=== PATIENT | male | born 1945 | race Caucasian/White ===

== ENCOUNTER 2017-05-13 05:47 | Inpatient (IN) | payer BC, OTHER ==
[2017-05-13] MEDS ORDERED: ceFAZolin 2 GM/SWFI 2 GM/20 ML SYR IVP ONE (06:07)
[2017-05-13] MEDS ORDERED: ACETAMINOPHEN 500 MG TAB PO ONE (06:07)
[2017-05-13] MEDS ORDERED: GABAPENTIN 300 MG CAP PO ONE (06:07)
[2017-05-13] MEDS ORDERED: LR 1,000 ML IV ONE (06:19)
[2017-05-13] MEDS ORDERED: LIDOCAINE 1% 2 ML INJ ID PRN (06:19)
--- NOTE | 2017-05-13 06:48 | PDHPUP ---
History & Physical Update H&P update statement: This history and physical update is based on an assessment of the patient which was completed after admission or registration (within 24 hours), but prior to the surgery/procedure. H&P update: H&P reviewed & patient examined, no change in patient's condition since H&P completed
[2017-05-13] MEDS ORDERED: MIDAZOLAM 2 MG/2 ML VIAL ONE ×3 (06:50→11:12)
[2017-05-13] MEDS ORDERED: KETAMINE 200 MG/20 ML VIAL ONE (06:51)
[2017-05-13] MEDS ORDERED: fentaNYL 250 MCG/5 ML INJ ONE ×3 (06:51→08:35)
[2017-05-13] MEDS ORDERED: PROPOFOL/EMULSION 500 MG/50 ML BOTTLE IV ONE ×2 (06:51)
[2017-05-13] MEDS ORDERED: BUPIVACAINE 0.25% 30 ML SDV ONE ×2 (07:00→14:30)
[2017-05-13] MEDS ORDERED: THROMBIN (BOVINE) 5,000 UNIT VIAL TP ONE ×3 (07:00→11:20)
[2017-05-13] MEDS ORDERED: DEXMEDETOMIDINE HCL 400 MCG in NS 100 ML IV SCH ×2 (07:00→11:00)
[2017-05-13] MEDS ORDERED: BACITRACIN 50,000 UNITS/10 ML SYR IRR ONE ×3 (07:00→14:30)
--- NOTE | 2017-05-13 07:03 | PDANEPAE ---
ANE History of Present Illness 72 year old male with PMH significant for bilateral upper extremity radiuclar numbness to hands from Cervical Disc disease, rate controlled atrial fibrillation, gout, and hypersensitive interstitial lung disease for which is in a research protocol at [facility]. He uses CPAP every night and is not home oxygen dependent. He has good exercise tolerance. He has received several anesthetics without nausea, emesis, or other complications. ANE Past Medical History - Cardiovascular History Hx Hypertension: No Hx Arrhythmias: Yes Hx Chest Pain: No Hx Coronary Artery / Peripheral Vascular Disease: No Hx CHF / Valvular Disease: No Hx Palpitations: No Cardiovascular History Comment: CHRONIC A-FIB - Pulmonary History Hx COPD: No Hx Asthma/Reactive Airway Disease: No Hx Recent Upper Respiratory Infection: No Hx Oxygen in Use at Home: No Hx Sleep Apnea: Yes Sleep Apnea Screening Result - Last Documented: Positive Pulmonary History Comment: INTERSTITIAL LUNG DX. MONI USES C-PAP INSTRUCTED TO BRING DOS - Neurologic History Hx Cerebrovascular Accident: No Hx Seizures: No Hx Dementia: No - Endocrine History Hx Diabetes: No - Renal History Hx Renal Disorders: No - Liver History Hx Hepatic Disorders: No - Neurological & Psychiatric Hx Hx Neurological and Psychiatric Disorders: No - Cancer History Hx Cancer: Yes Cancer History Comment: SKIN - Congenital Disorder History Hx Congenital Disorders: No - GI History Hx Gastrointestinal Disorders: Yes Gastrointestinal History Comment: REMVL COLON POLYPS. PREV ESOPHAGEAL DILATIONS X2. RESIDUAL ISSUES WITH SWALLOWING - Other Health History Other Health History: GILBERTS SYNDROME. GOUT. PERIPHERAL NEUROPATHY VS PARESTHESIA. INTERMITTENT TINNITUS/VERTIGO. ECZEMA. VITAMIN D DEFICIENCY - Chronic Pain History Chronic Pain: Yes (NT FINGERS) - Surgical History Prior Surgeries: EGD,ESOPHAGEAL DILATION X2 MOST RECENT 2013. LOLITA HIP RESURFACING LAST 2002. BRONCH. REMVL NASAL POLYPS. TONSILLECTOMY. APPY. MOH 'S RT JAINISM. RT FIBULA ORIF TIBIA WITH POST HARDWARE REMVL ANE Review of Systems Review of Systems: - Exercise capacity METS (RN): 5 METS ANE Patient History - Allergies Allergies/Adverse Reactions: amoxicillin Allergy (Verified 04/14/17 13:15) "flu like symptoms" Penicillins Allergy (Verified 17 13:15) "joint swelling" tree nut [Nuts] Allergy (Verified 17 13:15) - Home Medications Home Medications: Albuterol [Proventil Inhaler HFA (*)] 1 - 2 puffs IH DAILY PRN 12/12/17 [Last Taken 02/01/17] Allopurinol [Allopurinol 300 MG (RX)] 300 mg PO DAILY 04/14/17 [Last Taken 05/13 04:45] Aspirin [Aspirin 81mg (*)] 81 mg PO DAILY 04/14/17 [Last Taken 05/06/17] Azelastine HCl 2 mcg NS DAILY PRN 04/14/17 [Last Taken 05/12/17] Cholecalciferol Vit D3 [Vitamin D3 2000 units tab (OTC)] 4,000 units PO DAILY [Last Taken 05/06/17] Clindamycin 600 mg PO AD PRN 04/14/17 [Last Taken 03/04/17] Colchicine [Colchicine (*)] 0.6 mg PO DAILY PRN 04/14/17 [Last Taken 03/04/17] - NPO status NPO Since - Liquids (Date): 05/13/17 NPO Since - Liquids (Time): 04:45 NPO Since - Solids (Date): 05/12/17 NPO Since - Solids (Time): 19:30 - Smoking Hx Smoking Status: Former smoker - Family Anes Hx Family Hx Anesthesia Complications: NEG ANE Labs/Vital Signs - Vital Signs Blood Pressure: 129/90 Heart Rate: 91 Respiratory Rate: 20 O2 Sat (%): 91 Height: 179.07 cm Weight: 97.522 kg ANE Physical Exam - Airway Neck exam: FROM Mallampati Score: Class 1 Mouth exam: normal dental/mouth exam, poor dentition - Pulmonary Pulmonary: no respiratory distress - Cardiovascular Cardiovascular: irregularly irregular - ASA Status ASA Status: III ANE Anesthesia Plan Anesthesia Plan: general endotracheal anesthesia Lines/Monitors: additional IV
[2017-05-13] MEDS ORDERED: ALBUTEROL 60 PUFFS/8 GM MDI IH PRN (07:31)
[2017-05-13] MEDS ORDERED: AZELASTINE NASAL MDI NS PRN (07:31)
[2017-05-13] MEDS ORDERED: COLCHICINE 0.6 MG CAP/TAB PO PRN (07:31)
[2017-05-13] MEDS ORDERED: MAGNESIUM HYDROXIDE 30 ML UDCUP PO PRN (07:32)
[2017-05-13] MEDS ORDERED: HYDROCODONE/APAP 5/325 TAB PO PRN (07:32)
[2017-05-13] MEDS ORDERED: oxyCODONE IR 5 MG TAB PO PRN (07:32)
[2017-05-13] MEDS ORDERED: BISACODYL 10 MG SUPP PR PRN (07:32)
[2017-05-13] MEDS ORDERED: HYDROmorphONE/DILAUDID 1 MG/ML INJ IVP PRN (07:32)
[2017-05-13] MEDS ORDERED: NALOXONE HCL 0.4 MG/ML INJ IVP PRN ×2 (07:32→09:09)
[2017-05-13] MEDS ORDERED: diphenhydrAMINE 25 MG CAP PO PRN (07:32)
[2017-05-13] MEDS ORDERED: ONDANSETRON 4 MG/2 ML VIAL IVP PRN (07:32)
[2017-05-13] MEDS ORDERED: METHOCARBAMOL 750 MG TAB PO PRN (07:32)
[2017-05-13] MEDS ORDERED: HYDROmorphONE/DILAUDID 6 MG/30 ML PCA IV PRN (07:32)
[2017-05-13] MEDS ORDERED: ONDANSETRON DISINTEGRATING 4 MG TAB PO PRN (07:32)
[2017-05-13] MEDS ORDERED: LACTULOSE 20 GM/30 ML UDCUP PO PRN (07:32)
[2017-05-13] MEDS ORDERED: POLYETHYLENE GLYCOL 3350 17 GM PKT PO PRN (07:32)
[2017-05-13] MEDS ORDERED: ALBUTEROL 200 PUFFS/18 GM MDI IH PRN (07:41)
[2017-05-13] MEDS ORDERED: NS W/ 20 KCl/L 1,000 ML IV SCH (07:45)
[2017-05-13] MEDS ORDERED: ceFAZolin 1 GM VIAL ONE (08:40)
[2017-05-13] MEDS ORDERED: ONDANSETRON 4 MG/2 ML VIAL ONE (08:56)
[2017-05-13] MEDS ORDERED: DEXAMETHASONE 4 MG/ML VIAL ONE (08:56)
[2017-05-13] MEDS ORDERED: ROCURONIUM 100 MG/10 ML VIAL ONE (08:56)
[2017-05-13] MEDS ORDERED: FAMOTIDINE 20 MG TAB PO SCH (09:00)
[2017-05-13] MEDS ORDERED: LR 500 ML IV PRN (09:09)
[2017-05-13] MEDS ORDERED: MEPERIDINE 25 MG/ML SYR IVP PRN (09:09)
[2017-05-13] MEDS ORDERED: fentaNYL 100 MCG/2 ML INJ IVP PRN (09:09)
[2017-05-13] MEDS ORDERED: PROPOFOL 200 MG/20 ML VIAL ONE (11:12)
[2017-05-13] MEDS ORDERED: PHENYLEPHRINE HCL 100 MCG/ML SYR ONE (12:55)
[2017-05-13] MEDS: ALLOPURINOL 300 MG TAB PO SCH (13:26)
[2017-05-13] MEDS: SENNOSIDES/DOCUSATE SODIUM TAB PO SCH ×2 (13:27→20:05)
[2017-05-13 13:35] LABS: PLATELET COUNT 160 10^3/uL (150-400)
[2017-05-13] MEDS ORDERED: methylPREDNISolone SOD SUCC 125 MG/2 ML VIAL IVP ONE (13:45)
--- NOTE | 2017-05-13 13:47 | SOAPPROG ---
SOAP Progress Note Assessment/Plan: Post Op Visit S: pt had post op brief episode of hypoxia and required re-intubation. Anesthesia with pt O: intubated and sedated/paralyzed neck is soft and supple-no induration dressing clean and dry A/P: 72 yo male that is s/p C5 corpectomy with ACDF C4-C7 -orders in place -pt with post op/post extubation hypoxic episode that was brief and required reintubation -Anesthesia with pt -RT with pt -Dr Buster Quiñones with pt -admit to ICU -call with any questions or concern -pt seen with Dr Cristina 05/13/17 13:42 Objective: Vital Signs Temp Pulse Resp BP Pulse Ox 36.6 C 91 20 129/90 H 91 L 05/13/17 06:46 05/13/17 07:03 05/13/17 07:03 05/13/17 07:03 05/13/17 07:03 Laboratory Results 05/13/17 13:08 ICD10 Worksheet Patient Problems: Problems Problem Status Onset Arthrodesis status Acute Cervical radicular pain Acute Cervical stenosis of spinal canal Acute Postoperative hypoxia Acute - ICD10 Problem Qualifiers (1) Cervical stenosis of spinal canal (2) Cervical radicular pain (3) Arthrodesis status (4) Postoperative hypoxia
[2017-05-13] MEDS: GABAPENTIN 300 MG CAP PO SCH ×2 (13:50→20:06)
[2017-05-13] MEDS: ACETAMINOPHEN 500 MG TAB PO SCH ×2 (13:50→20:05)
[2017-05-13] MEDS ORDERED: ceFAZolin 2 GM/DEXTROSE 100 ML IV SCH (14:00)
[2017-05-13] MEDS ORDERED: ALBUMIN 5% 500 ML BOTTLE IV ONE (14:28)
[2017-05-13] MEDS ORDERED: THROMBIN (BOVINE) 20,000 UNIT VIAL TP ONE (14:29)
[2017-05-13] MEDS ORDERED: SURGIFLO MATRIX KIT WITH THROMBIN 8ml TP ONE (14:29)
[2017-05-13] MEDS ORDERED: ALTEPLASE 2 MG VIAL IVP PRN (14:33)
--- NOTE | 2017-05-13 14:51 | GOP ---
[f rep st] OPERATIVE REPORT DATE OF OPERATION: 05/13/2017 SURGEON: Sherrie Cristina MD PROFESSOR OF FLORICULTURE: Dex Garland PA-C. PREOPERATIVE DIAGNOSIS: Severe cervical spinal stenosis with cord compression C4-5, C5-6, C6-7 with myelomalacia and bilateral upper extremity dysesthesias. POSTOPERATIVE DIAGNOSIS: Severe cervical spinal stenosis with cord compression C4-5, C5-6, C6-7 with myelomalacia and bilateral upper extremity dysesthesias. PROCEDURE PERFORMED: Complete C5 corpectomy with decompression spinal canal at C4-5, C5-6, with ante rior cervical arthrodesis C4-5, C5-6 (39693, [id number], [id number]), placement of biomechanical intervertebral device from C4 to C6 ([id number]), anterior cervical diskectomy and fusion with decompression and arthrod esis at C6-7 (46198), placement of biomechanical intervertebral device C6-7 (64946), anterior cervica l instrumentation, C4, C5, C6, C7 ([id number]), microscope, same incision bone graft harvest ([id number]). FINDINGS: ESTIMATED BLOOD LOSS: 450 cc. INDICATIONS: The patient is an elderly gentleman with a history of pulmonary disease and severe bila teral upper extremity numbness and tingling. His MRI of the cervical spine demonstrated severe cord compression at C4-5, C5-6. There was some bony retrolisthesis of C5 and there was also material behi nd the vertebral body of C5 causing spinal stenosis. I felt, however, that we could achieve decompre ssion with ACDF alone at C4-5, C5-6, C6-7, and we planned a three-level anterior cervical diskectomy and fusion at those levels with decompression. I explained to him the nature of the procedure includ ing the risk of pseudoarthrosis, adjacent segment disease, the need for future surgery. He knew ther e was risk of spinal cord injury with any surgery like this. He also knew there was a chance of wors ening his neurologic status as well as worsening his dysesthesias with this type of surgery. Without the surgery, however, he understood that he would almost certainly progress at some point to paraple alexey and given his severe cord compression, surgery was recommended. He knew there was risk of vascul ar injury, esophageal injury, carotid injury, recurrent laryngeal nerve injury, and dysphagia, and he did want to proceed. DESCRIPTION OF PROCEDURE: Patient was taken to the operating room, placed in supine position. Gener al anesthesia was begun. A midline shoulder roll was placed. We did baseline motor evoked and somat osensory-evoked potentials, and they were normal. His neck was sterilely prepped and draped in the u sual fashion. We planned a transverse incision on the right side of the neck. We infiltrated the shah bcutaneous tissue with 0.25% Marcaine with epinephrine. We made a transverse incision in the dominan t neck crease on the right-hand side. The subcutaneous tissue was dissected using Bovie cautery down through the platysma. We then used a combination of sharp and blunt dissection medial to the sterno cleidomastoid and lateral to the strap muscles down to the prevertebral space. There was no need for division of any significant vessels. The dissection was extremely straightforward. We inserted a l ocalizing needle at the C5-6 level and there were large ventral osteophytes present. We then took co nsiderable time dissecting off the longus colli muscles off the spine from C4 down to C7, placed self -retaining retractors. We then removed the large ventral osteophytes to allow our retractors to sit flush against the verteb ral body. We placed a single pin in the C4 vertebral body and a single pin in the C6 vertebral body and distracted between these and shot an x-ray. We confirmed our location. A microscope was introdu tino. Under the scope we removed the C5-6 and the C4-5 disk really simultaneously. We took both of t hem out. We then drilled and harvested a significant amount of subchondral bone from each location f or autologous grafting purposes. We then turned our attention to C5-6 level where we opened the posterior longitudinal ligament and de compressed the thecal sac. There was very severe stenosis and very significant compression of the th ecal sac at C5-6. We decompressed surrounding the disk space at C5-6, and in the neural foramen on e ach side. We were happy with the quality of our decompression. Motor and somatosensory-evoked poten tials had been monitored throughout the surgery and they were stable. We went up to the C4-5 level u nder the scope, where we completely removed the disk and drilled and harvested subchondral bone for a utologous grafting purposes. We then began to open the posterior longitudinal ligament initially on the left-hand side and then working our way to the right. There was a large bony osteophyte on the r ight-hand side and therefore we started on the left. We opened the posterior longitudinal ligament, start working our way to the right-hand side. The dura was very apparent and we were getting a great decompression, and it was at this point that we sought a significant decrease in the left lower extr emity motor-evoked potentials. The tech felt there could be a technical issue and she adjusted our w ires and repeated these and got the same result. We had a diminished left arm and left leg motor chery ked potential. We therefore immediately converted to a C5 corpectomy as there were large posterior o steophytes and disk material in the spinal canal behind the C5 vertebral body, which was retrolisthes ed into the canal. We took a Leksell, out of the C5 vertebral body very quickly, and then worked our way from the C5-6 level up to the C4-5 level, and the decompression was very straightforw angel. There was absolutely a huge piece of bone on the right side of the spinal canal from the midpor tion of the C5 vertebral body all the way up to the C4-5 disk space. As we removed this, we repeated our motor-evoked potentials and they returned to baseline. They remained at baseline throughout the remaining portion of the procedure. We then took considerable time decompressing from the C5 pedicle to the C5 pedicle on each side. We removed the C4-5 disk and decompressed the neural foramen bilaterally at C4-5. There was some epidur al bleeding on the right side of the spinal canal behind the C5 vertebral body and we removed some ad ditional bone to control this. There was a small artery. They were present. There was bleeding and this was easily controlled. There was some bleeding from the corpectomy side and most of the blood loss during the case was venous bone bleeding. It was very dark. We packed the corpectomy site with Gelfoam while we prepared our implant and we measured 3 separate times and chose a 25 mm construct w hich we then built on the back table using a stackable system from [employer]. It was packed with lar ge amounts of bone autograft and inserted under fluoroscopic guidance from C4 to C6. I was very happ y with the position of the device. We did this naturally after removing the Gelfoam that had been pl aced in the corpectomy site, and we had achieved a meticulous hemostasis there. An x-ray was taken. I was happy with the position of the device. We moved our distraction pin down to C7, distracted at C6-7, and then removed the C6-7 disk and drill ed and harvested subchondral bone for autologous grafting purposes. We opened the posterior longitud inal ligament and decompressed the thecal sac and the neural foramina bilaterally. Here we chose a 7 x 16 x 14 mm implant, packed it with bone autograft, and it was inserted at the C6-7 level. On the C6-7 level, the right foramen had been worse than the left and we decompressed both. We then chose a 61 mm Zevo plate. We bent the plate to increase the cervical lordosis and placed a single screw at C4 and a single screw at C7. An x-ray was taken. I was happy with the hardware. It was in very goo d position. I placed the remaining 4 total screws for a total number of 6 screws into the plate. We used 17 mm screws. We locked them according to company specification and shot a final x-ray. All t he hardware was in good position. None of it had to be repositioned. We then spent considerable mara e achieving meticulous hemostasis of the longus colli muscles. Final motor evoked potential was done and we were at baseline. We had taken care throughout the surgery to maintain his mean arterial pre ssure, and I was happy that all of our signals were at their normal baseline. We then assured meticu lous hemostasis of the prevertebral space, placed a little Marcaine with epinephrine into the incisio n, and then closed the wound in multiple layers using Vicryl sutures. Steri-Strips were applied to t he skin. The patient was reversed from anesthesia and then taken to recovery room. There were no in traoperative complications. COMPLICATIONS: None. INSTRUMENTATION USED: A [employer] Zevo 61 mm plate from C4 to C7 with a 25 mm C5 construct, an 8, 5, 12 mm construct at C5, and we used a 7 x 16 x 14 mm PEEK PTC implant at C6-7. We used 17 mm screws. /[id number]/MODL
[2017-05-13] MEDS ORDERED: SUGAMMADEX SODIUM 200 MG/2 ML VIAL IVP ONE ×2 (15:00→15:15)
[2017-05-13] MEDS ORDERED: NOREPINEPHRINE/NS 500 ML IV SCH (15:00)
[2017-05-13] MEDS ORDERED: DEXMEDETOMIDINE/NS 4MCG/ML 100 ML BTL IV ONE (15:14)
[2017-05-13] MEDS ORDERED: ALBUMIN 5% 500 ML IV ONE (15:15)
--- NOTE | 2017-05-13 16:00 | ASMTCASEMG ---
Living Arrangements What is your living Answers: With Spouse arrangement? Who do you live with? Type Of Residence What kind of residence do Answers: House you live in? Discharge Plan Comments Coordination Status Comments Notes: Patient is a 72yo male who was admitted for a complete C5 corpectomy with decompressionspinal canal at C4-5, C5-6. Patient had surgery today with no complications. PT/OT/SPL have been ordered. D/C needs TBD. CM will follow. Date Signed: 05/13/2017 03:59 PM Electronically Signed By:Kassandra Khan LCSW
[2017-05-13] MEDS ORDERED: DOPamine/DEXTROSE/250 ML BAG IV ONE (17:02)
[2017-05-13] MEDS ORDERED: EPINEPHrine 1 MG/10 ML SYR IVP ONE (17:02)
[2017-05-13 17:41] LABS: INR 1.1 (0.83-1.16); PROTIME(PATIENT) 14.4 SEC (12.0-15.0)
[2017-05-13] MEDS ORDERED: ALBUTEROL 60 PUFFS/8 GM MDI IH SCH (17:45)
[2017-05-13] MEDS ORDERED: ALBUMIN 5% 500 ML IV PRN (18:50)
[2017-05-13] MEDS ORDERED: PROTOCOL MAGNESIUM 1 DOSE IV PRN (19:30)
[2017-05-13] MEDS ORDERED: PROTOCOL CALCIUM 1 DOSE IV PRN (19:30)
[2017-05-13] MEDS ORDERED: PROTOCOL POTASSIUM 1 DOSE MISC PRN (19:30)
[2017-05-13] MEDS: INSULIN REGULAR HUMAN 100 UNIT in NS 100 ML IV SCH (19:50)
[2017-05-13] MEDS: POTASSIUM Cl (KCl) 10 MEQ in NS 50 ML IV SCH ×3 (21:11→23:29)
[2017-05-13] MEDS: ALBUTEROL 60 PUFFS/8 GM MDI IH SCH ×2 (21:23→23:53)
[2017-05-13] MEDS ORDERED: MAGNESIUM SULF 1 GM/DEXTROSE 100 ML IV ONE (21:40)
[2017-05-13] MEDS ORDERED: CALCIUM GLUCONATE 50 ML IV ONE (22:19)
[2017-05-14] MEDS ORDERED: ALBUMIN 5% 500 ML IV ONE ×2 (01:00→07:44)
[2017-05-14] MEDS: ACETAMINOPHEN 500 MG TAB PO SCH ×3 (01:47→21:08)
[2017-05-14] MEDS: GABAPENTIN 300 MG CAP PO SCH ×3 (01:47→21:08)
--- NOTE | 2017-05-14 02:11 | GPN ---
[f rep st] PROCEDURE NOTE DATE OF PROCEDURE: 05/13/2017 PROCEDURE: Central line placement. INDICATION: Venous access, CVP measurements in a patient with hypotension and respiratory failure fo llowing neck surgery. DESCRIPTION OF PROCEDURE: The procedure was performed in the intensive care unit. Appropriate time- out was performed. Informed consent was obtained from the patient's . Sterile techniques were u sed throughout. A triple-lumen catheter was placed in the left subclavian vein without problems usin g standard techniques. Local anesthesia was with approximately 6 cc of 1% lidocaine. The procedure was done without any complications. There was good blood flow from all 3 lumens. A chest x-ray is p ending at the time of this dictation. IMPRESSION: Successful left subclavian central line placement. Chest x-ray pending. /[id number]/MODL
--- NOTE | 2017-05-14 02:51 | GPROG ---
[f rep st] PROGRESS NOTE PROGRESS NOTE DATE OF SERVICE: 05/13/2017 I was called to the PACU by my PA to see the patient, who was hypoxic and having troubles with his ai ralph. Anesthesiologist was at the bedside. It was Dr. Ruth who did the case, and they were mask v entilating him and she felt that he had upper airway obstruction. She did not feel there was a probl em at the site of the surgery as she had noticed that his rather large tongue had actually fallen in the back of his throat and it was having trouble maintaining the airway. He was also hypotensive, an d felt that while he also had an airway issue, there could be a problem with his lungs as he has pre- existing lung disease. He was not conscious, but I was present at the bedside and asked for her to r eintubate the patient, which she agreed was the appropriate course of treatment. I had no reservatio n about this. The neck was soft and supple. There was no sign of a problem at the surgical site. Buster evans was reintubated without difficulty but was not moving air properly, and I believe she felt that he was in vasospasm. He was also hypotensive with systolic pressures in the 70s, and this promptly resp onded to some epinephrine. Critical Care Medicine was consulted. I remained at the bedside with Cri tical Care Medicine and the anesthesiologist for quite some period of time. A chest x-ray was taken. The ET tube was in the proper position. The patient had been re-paralyzed for the procedure, and i t was felt that we should transfer him to ICU. We did transfer him to ICU where he continued to stru ggle with repeated hypotension as the epinephrine wore off, and we had no good explanation for this. His pupils were pinpoint. He still had not woken from surgery, and I had never seen him move. Card iology was consulted. An echocardiogram was performed at the bedside, and there was no clear evidenc e of significant tricuspid regurgitation or cardiac abnormality. He was in atrial fibrillation. The re was no sign on his EKG of cardiac ischemia. We had no good explanation for his hypotension, and t he possibility of spinal cord injury and spinal shock was entertained, although this obviously is jaquan te rare after anterior cervical corpectomy. It was certainly a consideration. I readied the OR to t vanessa him back to emergently re-explore the neck. An MRI, in my view, would not be safe given the stru ggle that he had with hypotension, nor did I like the delay. As I felt that this could be due to spi nal shock, I was prepared to re-explore him. We had rallied a team. The OR was prepared for us to g o back, and at this point, it had been a little over an hour and 20 minutes since the episode began, and I suggested reversing his paralytic agent. As we reversed his paralytic agent, he moved all 4 ex tremities to command, and the hypotension also improved slightly. He continued to have bilateral pin point pupils, but he would follow commands, had excellent strength in his arms and legs, and therefor e the possibility of spinal shock was ruled out. He was asking for us to remove his ET tube, and thi s is a decision I would defer to Pulmonary/Critical Care Medicine. I was very encouraged that his ne urologic exam was affectively normal at this point, and he was requiring a small amount of epinephrin e to support his blood pressure. We tried Levophed and dopamine, and neither of these seemed to be s uccessful. I believe it was the opinion of the anesthesiologist that he likely had some measure of p ulmonary hypertension, and hence his response to epinephrine but not the other vasoactive agents. He was completely stable when I left the bedside and in the care of Critical Care Medicine. We had dis cussed extubating him tonight, but again this is a decision best made by the hay sorter. His was informed throughout this process of all of the developments, and she understood my concerns thro ughout all of this. We will continue to reassess him as time goes on and work towards extubation acc ording to Pulmonary's schedule. /[id number]/MODL
--- NOTE | 2017-05-14 03:55 | GCON ---
[f rep st] CONSULTATION PULMONARY CRITICAL CARE CONSULTATION DATE OF CONSULTATION: 05/13/2017 REASON FOR CONSULTATION: Hypotension and acute respiratory failure following cervical spine surgery. HISTORY: The patient is a 72-year-old, who was admitted to the intensive care unit. With respirator y failure and hypotension following cervical spine surgery. He had significant cervical disease and elective surgery was performed earlier today. He had surgery from C4-C7 with corpectomy and decompre ssion of the spinal canal at C4-5 and C5-6, and arthrodesis. Anterior cervical diskectomy and fusion were done at C6-7, followed by plating. Further details can be found in Dr. Cristina's note. [facility] ed blood loss was approximately 450 cc. The patient was returned to the PACU following surgery and e xtubated. Because of a history of sleep apnea, he was placed on BiPAP post extubation. The head of his bed was raised and it was noted that he was breathing poorly and was hypotensive. He was intubat ed in PACU without significant difficulty. No obstruction or obvious hematoma was seen compressing t he airway. He was found to be moving little air. Secondary to hypotension and bradycardia he was gi pelon epinephrine. Pulse and blood pressure came back, with pressures above 200/100 briefly; however, he would again lose his pressure and the rapid rate seen with the epinephrine would slow, and he woul d again be com hypotensive and bradycardic requiring more epinephrine. He did not respond to a dopam ine drip. An ART line was placed. More epinephrine was given on 2 occasions, in smaller doses, and he was emergently transferred to the intensive care unit. There he was placed on an epinephrine drip . Central line was placed with a CVP found to be 13. He was left on the ventilator. Chest x-ray sh ows underlying interstitial disease. He also has received significant fluids, approximately 5 L of c rystalloid and colloid. The last x-ray showed increased markings probably consistent with some fluid overload. He remains on epinephrine. He is also on low-dose propofol. He is awake and alert, foll owing commands. He is responsive and relatively comfortable. He moves all extremities and reports s ensation in all extremities. PAST MEDICAL HISTORY: Remarkable for interstitial lung disease. He is followed at [facility] or [facility]. He also has a component of asthma and is on ProAir. He was on steroids and other inhaled m edications in the past. This there is a history of sleep apnea. He uses BiPAP at night. He has a h istory of chronic atrial fibrillation, and has been seen at [facility]. He uses oxygen. HOME MEDICATIONS: Include allopurinol, aspirin, topical nasal preparations, ProAir, and Proctozone. DRUG ALLERGIES: Penicillins. SOCIAL HISTORY: The patient is . He is a supportive who is here with him. He apparentl y smoked cigarettes in the more distant past. Significant alcohol is negative. FAMILY HISTORY: Noncontributory. REVIEW OF SYSTEMS: Currently unobtainable. Per his , there is no history of coronary artery dis ease. He has been followed at [facility] [place] for many years for his interstitial lung disease. His believes this is associated with a hypersensitivity type process. There is no history of throm boembolic disease. PHYSICAL EXAMINATION: GENERAL: Reveals a gentleman who is intubated, on the ventilator. He is slig htly sedated but is easily aroused and spontaneously will communicate. He responds to questions and commands. He is not too uncomfortable with the endotracheal tube in place. VITAL SIGNS: Blood pres sure is currently 100/53 with a mean arterial pressure of 68. Heart rate is 90 with atrial fibrillat ion on the monitor. CVP is 11. FiO2 is at 40% with saturations of 99%. Respiratory rate is 16 set on the ventilator. He will trigger above this. He remains on an epinephrine drip. He is also on Pr ecedex. HEENT: Remarkable for an oral endotracheal tube in place. Pupils are equal, slightly small . NECK: His surgical incision over the anterior right neck is dressed. The neck is soft. There is no fullness, no ecchymoses. No drains are in place. CHEST: Clear anteriorly. Breath sounds are s omewhat coarse. There are few rales scattered more posteriorly. There is no pleural rub. There are no rhonchi. There are no obvious wheezes. HEART: Regular in rate and rhythm. There is a soft sys tolic murmur, no gallop. ABDOMEN: Soft and nontender. Bowel sounds are diminished. A Pappas cathet er is in place. He has good urine output. EXTREMITIES: Unremarkable for edema, cords, or tendernes s. He has a left subclavian triple-lumen catheter in place and an ART line in the right wrist. IMAGING: Radiologic studies are as noted above. Chest x-ray shows increased markings. Lines and tu bes are in good position. LABORATORY: White blood cell count 7800, hematocrit 44, platelets 160,000. Arterial blood gas showed a pH of 7.40, pCO2 of 35, and a PO2 of 368. Chemistries are pending at the time of this dictation. ASSESSMENT: 1. Acute respiratory failure. The patient had profound hypoventilation despite being tried on bilev el positive airway pressure in the immediate post operative/post extubation time period. He was intu bated electively without significant difficulty. There was no evidence of a cervical hematoma. Ther e is no evidence for aspiration. 2. Hypotension. The patient was severely hypotensive in the Postanesthesia Care Unit, requiring sma ll boluses of epinephrine in order to maintain his blood pressure and pulse. He currently he is on e pinephrine drip at relatively high doses still. This is despite adequate filling pressures. The shiela ology for his hypotension is somewhat unclear. He is responding nicely to epinephrine but did not re spond either to dopamine or to Levophed when they were tried earlier today. The etiology for his hyp otension may be related to an unusual reaction to the medications he received perioperatively? If so , hopefully as these wear off he will stabilize. There is no evidence of pericardial tamponade or my ocardial dysfunction, nothing to suggest pulmonary embolic disease etc. 3. Underlying interstitial lung disease. 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 I do not have his records from [facility] [place]; however, recently his l magalie problems have been quite stable. His disease is accompanied by a reversible process as well, and he is on albuterol on an as-needed basis. There was no evidence to definitely suggest acute severe bronchospasm in the Postanesthesia Care Unit, although he did appear to move air more efficiently fol lowing being dosed with epinephrine. 4. Cervical spine surgery. There were no complications intraoperatively. He did lose some blood bu t hematocrit postoperatively is 44. There is no evidence of a surgical hematoma. There is no eviden ce of cord compromise as he is moving everything, has good sensation. 5. History of other medical problems as noted above. PLAN AND RECOMMENDATIONS: Patient will be kept on the ventilator overnight, with sedation provided b y Precedex, as long as this does not affect blood pressure significantly. Epinephrine will be contin ued for now, and weaned as tolerated to keep mean arterial pressure approximately 65 or greater. CVP will be kept in the 10-12 range. Fluids will be used judiciously and decreased at this point, as hi s x-ray appears a little wet. Chest x-ray, laboratory and blood gas will be followed. Neuro checks will be maintained. This once he is hemodynamically stable. If his pulmonary status is also stable then CPAP weans and extubation will be considered. Albuterol will be given per ventilatory protocols . His usual oral medications will be held at this time. Appropriate pain control will be maintained with p.r.n. IV Dilaudid as needed. Steroids will not be repeated at this time. Pantoprazole will b e given for GI prophylaxis, SCDs for DVT prophylaxis. Pappas catheter will be left in for now. Further plans and recommendations will be made based on his progress over the next 12-24 hours. All of the above was discussed with Neurosurgery, Anesthesia, the patient's , respiratory therapy , nursing etc. Over 2 hours of critical care time was spent directly with the patient starting in th e PACU and continued in the intensive care unit. This did not include central line placement. /[id number]/MODL
[2017-05-14] MEDS: INSULIN REGULAR HUMAN 100 UNIT in NS 100 ML IV SCH (04:13)
[2017-05-14] MEDS: ALBUTEROL 60 PUFFS/8 GM MDI IH SCH ×3 (04:26→11:23)
[2017-05-14 04:36] LABS: PLATELET COUNT 152 10^3/uL (150-400)
[2017-05-14] MEDS ORDERED: D5W 1,000 ML IV SCH (05:29)
--- NOTE | 2017-05-14 07:36 | NEUSURGPN ---
Date of Surgery: 05/13/17 Post Op Day: 1 Assessment/Plan: Assessment: 72 yo male that is s/p C5 corpectomy with ACDF C4-C7 with post op episode of hypoxia POD #1 Plan: -post op hypotension/hypoxia: doing better now with better blood pressure, pt with continued need for epi drip but at slower rate -s/p ACDF: pt with minimal neck pain -pt gestures that he has no pain -PT/OT/ST ordered -collar as directed -post op xrays ordered -neck soft and supple -call with any questions -orders in place -RT working with pt -critical care on board -call with any questions or concern -pt seen with Dr Cristina 05/13/17 13:42 Subjective: Awake and alert. NAD. Pt with minimal neck pain. Collar in place. Objective: Awake and alert. Intubated Follows all commands 5/5 BUE/BLE = neck soft and supple +cms/nv intact x 4 CDI Neuro Check Frequency: per routine Urinary Catheter in Place: Yes Urinary Catheter Indication: Other (Use Comment) (intubated) Catheter Insertion Date: 05/13/17 - Physician Discussed Patient with : Jonnie Patient Seen by : Jonnie Neurosurgery Physical Exam - Vitals, I&O, Labs I and O 05/13/17 05/14/17 05/15/17 05:59 05:59 05:59 Intake Total 3759.1 Output Total 1260 395 Balance 2499.1 -395 Weight 97.522 kg Intake: IV Intake (ml) 133 IV Infused (ml) 3626.1 Albumin 5% 500 ml @ As 500 Directed IV ONCE ONE Rx#: [id number] D5w 1,000 ml @ Per 34.7 Protocol IV AD ROJAS Rx#: [id number] Dexmedetomidine HCl 400 68.1 mcg In Ns 100 ml @ Titrate IV CONT ROJAS Rx#: [id number] EPINEPHrine 1 mg In D5w 1835 250 ml @ Per Protocol IV CONT ROJAS Rx#:[id number] Insulin Regular Human 100 112.8 unit In Ns 100 ml @ As Directed IV CONT ROJAS Rx#: [id number] NS W/ 20 KCl/L 1,000 ml @ 673.5 50 mls/hr IV CONT ROJAS Rx #:[id number] POTASSIUM Cl (KCl) 10 meq 252 In Ns 50 ml @ 50 mls/hr IV Q1H ROJAS Rx#:[id number] Protocol Calcium 1 dose ( 50 See Protocol) IV AD PRN Rx#:[id number] Protocol Magnesium 1 dose 100 (See Protocol) IV AD PRN Rx#:[id number] Output: Urine (ml) 1260 395 Catheter 1260 395 Vital Signs Temp Pulse Resp BP Pulse Ox 37.1 C 90 12 121/60 H 100 05/14/17 04:00 05/14/17 07:00 05/14/17 07:00 05/14/17 07:00 05/14/17 07:00 Laboratory Results 05/14/17 04:10 05/14/17 04:10 ICD10 Worksheet Patient Problems: Problems Problem Status Onset Arthrodesis status Acute Cervical radicular pain Acute Cervical stenosis of spinal canal Acute Postoperative hypoxia Acute - ICD10 Problem Qualifiers (1) Cervical stenosis of spinal canal (2) Cervical radicular pain (3) Arthrodesis status (4) Postoperative hypoxia
[2017-05-14] MEDS: ALLOPURINOL 300 MG TAB PO SCH (09:35)
[2017-05-14] MEDS: SENNOSIDES/DOCUSATE SODIUM TAB PO SCH ×2 (09:35→20:01)
[2017-05-14] MEDS: PANTOPRAZOLE SODIUM 40 MG VIAL IVP SCH (09:35)
--- NOTE | 2017-05-14 12:59 | PDINTPN ---
Addiction Psychiatrist Progress Note Assessment/Plan: Assessment: Acute respiratory failure: Resolved. No evidence of upper airway obstruction, significant pulmonary issues. No evidence of asthma currently. Hypotension: Responded only to epinephrine. On an epi drip overnight. We have been able to wean this down, but he remains on it at low dose with borderline blood pressures. The etiology for his hypotension and responsiveness only to epinephrine unclear. Status post cervical spine surgery. Doing well. Neurology intact. Neurosurgery following. Collar in place. Underlying interstitial lung disease: Possibly hypersensitivity pneumonitis in past. Followed at [facility] for this. Current x-ray shows increased markings, probably secondary to fluid resuscitation. Clinically doing well, on room air, without significant rales or congestion. Metabolic: Hyperglycemic requiring an insulin drip secondary to the epinephrine. Issues resolving. Off insulin now. DVT prophylaxis: SCDs, ambulation. History of obstructive sleep apnea. Uses CPAP and oxygen at night at home. No evidence of airway obstruction post extubation. Plan: Continue care and observation in the intensive care unit today. Wean epinephrine as blood pressure tolerate, accepting a MAP of 60 or above. Check thyroid functions, check a.m. cortisol tomorrow but this may elevated from Solu- Medrol given yesterday. Continue bronchodilator treatments as needed. Follow laboratory. Decrease IV fluids as much as possible, as blood pressure permits. Follow-up chest x-ray prior to discharge. 40 min of critical care time spent directly with the patient. Discussed with Neurosurgery, respiratory, nursing, and the ICU multi disciplinary team. Subjective: Did will overnight on the ventilator. Extubated this morning. Denies shortness of breath. Remains on low-dose epi. Denies neurologic symptoms, shortness of breath. Objective: Vital Signs Temp Pulse Resp BP Pulse Ox 37.4 C 90 24 H 88/56 L 94 05/14/17 09:00 05/14/17 12:00 05/14/17 12:00 05/14/17 12:00 05/14/17 12:00 Microbiology 05/14/17 08:30 - Final Sputum, Induced/Suctioned Laboratory Results 05/14/17 04:10 05/14/17 04:10 05/13/17 05/14/17 05/15/17 05:59 05:59 05:59 Intake Total 3759.1 Output Total 1260 395 Balance 2499.1 -395 PT 14.4 SEC (12.0-15.0) 05/13/17 17:10 INR 1.10 (0.83-1.16) 05/13/17 17:10 CXR: Increased markings bilaterally. Consistent with his known underlying interstitial lung disease and a component of fluid overload secondary to volume received in the last day. Physical Exam - Physical Exam General Appearance: alert, no apparent distress, other (Up in chair) EENT: PERRL/EOMI, other (Nasal cannula in place earlier at 2 L, now on room air with saturations of 94%.) Neck: normal inspection (No obvious jugular venous distension), other (Collar in place. Incision dressed per) Respiratory: lungs clear, decreased breath sounds (At bases, few rales), rales ( Few), No rhonchi, No wheezing Cardiac/Chest: irregularly irregular (AFib, chronic, rate controlled) Abdomen: normal bowel sounds, non-tender, soft Male Genitalia: other (Pappas catheter in place, to be removed) Skin: normal color, warm/dry Extremities: No pedal edema Neuro/Psych: no motor/sensory deficits, No cognition abnormalities ICD10 Worksheet Patient Problems: Problems Problem Status Onset Arthrodesis status Acute Cervical radicular pain Acute Cervical stenosis of spinal canal Acute Postoperative hypoxia Acute
--- NOTE | 2017-05-14 13:01 | ECHO ---
[email or web address] [address] [address] Main: [phone] Fax: [email or web address] Echocardiogram Name: ALBIN BEAL MR#: [id number] Study Date: 05/13/2017 Study Time: 02:11 PM Date of : 1945 Age: 72 year(s) Height: ( ) Weight: ( ) BSA: Gender: Male Examination: Limited Echo Indication: Hypotension/hx AF Image Quality: Contrast: Requested by: Panfilo Quiñones BP: / Heart Rate: Rhythm: Indication: Hypotension/hx AF Procedure Staff Certified Activities Director: Catina Patrick Physician: Geoffrey Scott Requesting Provider: Conclusions: RV appears normal size. The RV is hypercontractile with normal function. No evidence of tamponade. The LV function is normal also. A cause for the patient's hypotension is not identified on this study. Measurements: Chambers Valvular Assessment AV/MV Valvular Assessment TV/PV Normal Normal Normal Name Value Range Name Value Range Name Value Range TR Vmax: 1.85 mm/s ( - ) TR PGmax: 14 mmHg ( - ) syst. PAP: 19 mmHg ( - ) Continued Measurements: Valvular Assessment TV/PV Name Value CVP (est.): 5 mmHg Findings: Left Ventricle: Global hypercontractility of the left ventricle. RV appears normal size. Tricuspid Valve: Trivial tricuspid valve regurgitation. No pulmonary HTN found.. Pericardium: Patient: ALBIN BEAL Study Date: 05/13/2017 Page 1 of 2 02:11 PM No pericardial effusion. There is pericardial fat. Exam Comments: Stat limited echo for hypotension.. (No Signature Object) Patient: ALBIN BEAL Study Date: 05/13/2017 Page 2 of 2 02:11 PM [id number]
[2017-05-14] MEDS ORDERED: ALBUTEROL 60 PUFFS/8 GM MDI IH PRN (14:44)
[2017-05-15 05:20] LABS: PLATELET COUNT 98 10^3/uL (150-400)
[2017-05-15] MEDS: ACETAMINOPHEN 500 MG TAB PO SCH ×3 (05:52→20:58)
[2017-05-15] MEDS: GABAPENTIN 300 MG CAP PO SCH ×3 (05:52→20:57)
[2017-05-15] MEDS: ALBUTEROL 3 ML DEYVIAL IH PRN ×3 (06:36→21:30)
--- NOTE | 2017-05-15 08:25 | NEUSURGPN ---
Assessment/Plan: Assessment: 72 yo male that is s/p C5 corpectomy with ACDF C4-C7 with post op episode of hypoxia POD #2 Plan: -post op hypotension/hypoxia: doing better now with better blood pressure, off epi drip, bp slightly low this am 90s/60s -s/p ACDF: pt with minimal neck pain. C/o left arm nerve pain. On gabapentin 900mg TID, will increase slightly to 1200/900/900 -PT/OT/PLUSH CUTTER ordered -collar as directed, wear shower collar as well - discussed with Dr Cristina -post op xrays show stable hardware -critical care on board -OK to transfer to floor once cleared by crit care -call with any questions or concern -pt discussed with Dr Cristina Subjective: Pt resting in bedside chair, states he is swallowing ok. Working with PT. Objective: AAOx3 NAD VSS MAEx4 Motor 5/5 BUE Hard collar on Incision dressed cdi +LT Urinary Catheter in Place: No Catheter Insertion Date: 05/13/17 - Physician Discussed Patient with : Jonnie Neurosurgery Physical Exam - Vitals, I&O, Labs I and O 05/14/17 05/15/17 05/16/17 05:59 05:59 05:59 Intake Total 3759.1 2796 Output Total 1260 3670 Balance 2499.1 -874 Weight 97.522 kg Intake: Oral (ml) 1500 IV Intake (ml) 133 IV Infused (ml) 3626.1 1296 Albumin 5% 500 ml @ As 500 Directed IV ONCE ONE Rx#: [id number] Albumin 5% 500 ml @ As 500 Directed IV ONCE PRN Rx#: [id number] D5w 1,000 ml @ Per 34.7 Protocol IV AD ROJAS Rx#: [id number] Dexmedetomidine HCl 400 68.1 mcg In Ns 100 ml @ Titrate IV CONT ROJAS Rx#: [id number] EPINEPHrine 1 mg In D5w 1835 250 ml @ Per Protocol IV CONT ROJAS Rx#:[id number] Insulin Regular Human 100 112.8 unit In Ns 100 ml @ As Directed IV CONT ROJAS Rx#: [id number] NS W/ 20 KCl/L 1,000 ml @ 673.5 796 150 mls/hr IV CONT ROJAS Rx#:[id number] POTASSIUM Cl (KCl) 10 meq 252 In Ns 50 ml @ 50 mls/hr IV Q1H ROJAS Rx#:[id number] Protocol Calcium 1 dose ( 50 See Protocol) IV AD PRN Rx#:[id number] Protocol Magnesium 1 dose 100 (See Protocol) IV AD PRN Rx#:[id number] Output: Urine (ml) 1260 3670 Catheter 1260 1695 Toilet 1125 Urinal 850 Other: Number of Voids Toilet 2 Microbiology 05/14/17 08:30 - Final Sputum, Induced/Suctioned Vital Signs Temp Pulse Resp BP Pulse Ox 37.4 C 99 20 91/62 L 94 05/15/17 05:57 05/15/17 08:06 05/15/17 08:06 05/15/17 08:06 05/15/17 08:06 Laboratory Results 05/15/17 05:10 05/15/17 05:10 ICD10 Worksheet Patient Problems: Problems Problem Status Onset Arthrodesis status Acute Cervical radicular pain Acute Cervical stenosis of spinal canal Acute Postoperative hypoxia Acute
[2017-05-15] MEDS: PANTOPRAZOLE SODIUM 40 MG VIAL IVP SCH (08:37)
[2017-05-15] MEDS: ALLOPURINOL 300 MG TAB PO SCH (08:37)
[2017-05-15] MEDS: SENNOSIDES/DOCUSATE SODIUM TAB PO SCH ×2 (08:37→20:56)
[2017-05-15] MEDS ORDERED: GABAPENTIN 300 MG CAP PO SCH (09:00)
--- NOTE | 2017-05-15 12:12 | ASMTCMCOM ---
CM Note CM Note Notes: PT/OT have recommended patient return home and pursue outpatient therapy. D/C plan currently is home independent. CM available if D/C needs arise. Date Signed: 05/15/2017 12:11 PM Electronically Signed By:Kassandra Khan LCSW
[2017-05-15 15:58] VITALS: RESP 16
--- NOTE | 2017-05-15 16:14 | PDINTPN ---
Triage Nurse Progress Note Assessment/Plan: Assessment: Acute respiratory failure: Resolved. No evidence of upper airway obstruction, significant pulmonary issues. No evidence of asthma currently. No rales despite his history of interstitial lung disease Hypotension: Responded only to epinephrine. On an epi drip initially, weaned off yesterday. The etiology for his hypotension and responsiveness only to epinephrine is unclear. Status post cervical spine surgery. Doing well. Neurology intact. Neurosurgery following. Collar in place. Underlying interstitial lung disease: Possibly hypersensitivity pneumonitis in past. Followed at [facility] for this. Current x-ray shows increased markings, probably secondary to fluid resuscitation. Clinically doing well, on room air, without significant rales or congestion. Metabolic: Hyperglycemic requiring an insulin drip secondary to epinephrine. Resolved. Off insulin now. DVT prophylaxis: SCDs, ambulation. History of obstructive sleep apnea. Uses CPAP and oxygen at night at home. No evidence of airway obstruction post extubation. Thrombocytopenia: Platelets 98 today. Will follow. Plan: Continue care and observation in the intensive care unit throughout the early part of today. If he does well he be transferred later to a medical- surgical bed on the neurology floor. Will continue to except MAP of 60 or above , however he is now up into the 70s. Continue bronchodilator treatments as needed. Follow laboratory. In cord oral intake. Can have salty foods. Follow -up chest x-ray prior to discharge or as an outpatient per [facility]. 25 min of critical care time spent directly with the patient. Discussed with the patient and his , Neurosurgery, nursing, and the ICU multi disciplinary team. Subjective: Feels better, up in chair. Some lightheadedness with being upright/ambulating. Denies significant pain. Occasionally has some radicular pain to the left shoulder. Extremity tingling has resolved, some residual numbness present Objective: Vital Signs Temp Pulse Resp BP Pulse Ox 37.4 C 103 H 16 110/69 97 05/15/17 05:57 05/15/17 14:00 05/15/17 15:55 05/15/17 15:55 05/15/17 15:55 Microbiology 05/14/17 08:30 - Final Sputum, Induced/Suctioned Laboratory Results 05/15/17 05:10 05/15/17 05:10 05/14/17 05/15/17 05/16/17 05:59 05:59 05:59 Intake Total 3759.1 2796 Output Total 1260 3670 Balance 2499.1 -874 PT 14.4 SEC (12.0-15.0) 05/13/17 17:10 INR 1.10 (0.83-1.16) 05/13/17 17:10 Laboratory Tests 05/14/17 05/15/17 04:10 05:10 TSH 0.712 Thyroxine (T4) 5.95 Total T3 0.783 L Cortisol AM Sample 10.5 Physical Exam - Physical Exam General Appearance: alert, no apparent distress EENT: PERRL/EOMI, other (On room air) Neck: normal inspection, other (Collar in place. Incision dressed.) Respiratory: lungs clear, normal breath sounds, No rales, No rhonchi Cardiac/Chest: irregularly irregular Abdomen: normal bowel sounds, non-tender, soft Skin: normal color, warm/dry Extremities: No pedal edema Neuro/Psych: no motor/sensory deficits, No cognition abnormalities ICD10 Worksheet Patient Problems: Problems Problem Status Onset Cervical stenosis of spinal canal Acute Cervical radicular pain Acute Arthrodesis status Acute Postoperative hypoxia Acute
[2017-05-16] MEDS: ACETAMINOPHEN 500 MG TAB PO SCH ×2 (05:20→13:14)
[2017-05-16] MEDS: GABAPENTIN 300 MG CAP PO SCH (05:21)
[2017-05-16 05:27] LABS: PLATELET COUNT 98 10^3/uL (150-400)
[2017-05-16 07:16] VITALS: BP 107/71; PULSE 96; TEMP 98
--- NOTE | 2017-05-16 07:21 | NEUSURGPN ---
Assessment/Plan: Assessment: 72 yo male that is s/p C5 corpectomy with ACDF C4-C7 with post op episode of hypoxia POD #3 Plan: -post op hypotension/hypoxia: doing better now with better blood pressure, last bp 107/70 -s/p ACDF: pt with minimal neck pain. C/o left arm nerve pain. Had not been on gabapentin prior to admission. Have stopped this after weaning down yesterday and this am. states the arm pain is tolerable. -PT/OT/[employer] ordered -collar as directed, wear shower collar as well - discussed with Dr Cristina. this has been ordered, please make sure patient receives collar. -post op xrays show stable hardware -critical care cleared for transfer to floor. -call with any questions or concerns -dc to home today. follow up in 2-3 weeks in office. Subjective: Pt resting in bedside chair, states that the left arm pain is tolerable and he would prefer to just take tylenol for pain. Objective: AAOx3 NAD VSS MAEx4 Motor 5/5 BUE C collar on Incision dressed cdi +LT Urinary Catheter in Place: No Catheter Insertion Date: 05/13/17 Neurosurgery Physical Exam - Vitals, I&O, Labs I and O 05/15/17 05/16/17 05/17/17 05:59 05:59 05:59 Intake Total 2796 1500 Output Total 3670 1000 Balance -874 500 Intake: Oral (ml) 1500 1500 IV Infused (ml) 1296 Albumin 5% 500 ml @ As 500 Directed IV ONCE PRN Rx#: [id number] NS W/ 20 KCl/L 1,000 ml @ 796 150 mls/hr IV CONT ROJAS Rx#:[id number] Output: Urine (ml) 3670 1000 Catheter 1695 Toilet 1125 1000 Urinal 850 Other: Number of Voids Toilet 2 2 Number of Stools Toilet 2 Microbiology 05/14/17 08:30 - Final Sputum, Induced/Suctioned Vital Signs Temp Pulse Resp BP Pulse Ox 36.6 C 96 16 107/71 90 L 05/16/17 07:15 05/16/17 07:15 05/16/17 07:15 05/16/17 07:15 05/16/17 07:15 Laboratory Results 05/16/17 05:15 05/15/17 05:10 ICD10 Worksheet Patient Problems: Problems Problem Status Onset Arthrodesis status Acute Cervical radicular pain Acute Cervical stenosis of spinal canal Acute Postoperative hypoxia Acute
[2017-05-16] MEDS: ALLOPURINOL 300 MG TAB PO SCH (08:28)
[2017-05-16] MEDS: ALBUTEROL 3 ML DEYVIAL IH PRN (08:41)
[2017-05-16 08:49] VITALS: O2SAT 93
[2017-05-16] MEDS: SENNOSIDES/DOCUSATE SODIUM TAB PO SCH (08:53)
[2017-05-16] MEDS ORDERED: PANTOPRAZOLE SODIUM 40 MG TAB PO SCH (09:00)
[2017-05-16] MEDS ORDERED: ENOXAPARIN 40 MG/0.4 ML SYR SC SCH (09:00)
--- NOTE | 2017-05-17 16:04 | ASDISCHSUM ---
Discharge Information Plan Status:Home with No Needs Medically Cleared to Leave:05/15/2017 Discharge Date:05/16/2017 01:47 PM CM D/C Disposition:Home, Routine, Self-Care ADT D/C Disposition:Home, Routine, Self-Care Projected Discharge Date:05/16/2017 12:00 AM Transportation at D/C:Family Discharge Delay Reason: Follow-Up Date:05/16/2017 12:00 AM Discharge Slot: Final Diagnosis:C5 Corpectomy, ACDF C4-7, Hypoxia Placement Information Patient Contact Information Contact Name:DONIS Relationship: Address:[address] City:[place] Alternate Phone: State/Zip Code:[place] [address] Email: Financial Information Financial Class:HMO and PPO Plans Primary Plan Desc:[employer] Primary Plan Number:[id number] Secondary Plan Desc: Secondary Plan Number: Assessment Information [facility] Initial CM Assessment Living Arrangements What is your living Answers: With Spouse arrangement? Who do you live with? Type Of Residence What kind of residence do Answers: House you live in? Discharge Plan Comments Coordination Status Comments Notes: Patient is a 72yo male who was admitted for a complete C5 corpectomy with decompressionspinal canal at C4-5, C5-6. Patient had surgery today with no complications. PT/OT/SPL have been ordered. D/C needs TBD. CM will follow. Date Signed: 05/13/2017 03:59 PM Electronically Signed By:Kassandra Khan LCSW [facility] CM Progress Note CM Note CM Note Notes: PT/OT have recommended patient return home and pursue outpatient therapy. D/C plan currently is home independent. CM available if D/C needs arise. Date Signed: 05/15/2017 12:11 PM Electronically Signed By:Kassandra Khan LCSW Intervention Information
--- NOTE | 2017-05-18 13:13 | POSTANESTH ---
Post Anesthetic Evaluation Cardiovascular Status: Normal, Stable Respiratory Status: Normal, Stable Level of Consciousness/Mental Status: Can Participate in Eval Pain Control: Adequate, Prn Tx Ordered Nausea/Vomiting Control: Adequate, Prn Tx Ordered Complications Possibly Related to Anesthesia: None Noted
== END 2017-05-16 13:47 | disposition home or self-care (01) | DRG 471 ==
LOC: F3N 05:47 → F2N 14:05 → F3N 05-15 17:30
PROVIDERS: ADMIT Neurological Surgery; ATTEND Neurological Surgery
PROC: 0PB30ZZ Excision of Cervical Vertebra, Open Approach (ICD-10-PCS; principal; 2017-05-13 07:30)
PROC: 4A10X4G Monitoring of Central Nervous Electrical Activity, Intraoperative, External Approach (ICD-10-PCS; principal; 2017-05-13 07:30)
PROC: 0RG2070 Fusion of 2 or more Cervical Vertebral Joints with Autologous Tissue Substitute, Anterior Approach, Anterior Column, Open Approach (ICD-10-PCS; principal; 2017-05-13 07:30)
PROC: 00NW0ZZ Release Cervical Spinal Cord, Open Approach (ICD-10-PCS; principal; 2017-05-13 07:30)
PROC: 0RT30ZZ Resection of Cervical Vertebral Disc, Open Approach (ICD-10-PCS; principal; 2017-05-13 07:30)
PROC: 0BH17EZ Insertion of Endotracheal Airway into Trachea, Via Natural or Artificial Opening (ICD-10-PCS; 2017-05-13 07:30)
PROC: 3E043XZ Introduction of Vasopressor into Central Vein, Percutaneous Approach (ICD-10-PCS; 2017-05-13 07:30)
PROC: 02HV33Z Insertion of Infusion Device into Superior Vena Cava, Percutaneous Approach (ICD-10-PCS; 2017-05-13 07:30)
PROC: 5A1935Z Respiratory Ventilation, Less than 24 Consecutive Hours (ICD-10-PCS; 2017-05-13 07:30)
PROC: 02HQ33Z Insertion of Infusion Device into Right Pulmonary Artery, Percutaneous Approach (ICD-10-PCS; 2017-05-13 07:30)
DX: M47.12 Other spondylosis with myelopathy, cervical region (principal); M43.12 Spondylolisthesis, cervical region; J96.01 Acute respiratory failure with hypoxia; I95.81 Postprocedural hypotension; J84.89 Other specified interstitial pulmonary diseases; J45.909 Unspecified asthma, uncomplicated; G47.33 Obstructive sleep apnea (adult) (pediatric); I48.2 Chronic atrial fibrillation; Z79.82 Long term (current) use of aspirin; M10.9 Gout, unspecified; Z87.891 Personal history of nicotine dependence
CPT/HCPCS: 82947-QW; 84480-90; 92526-GN; 92610-GN; 97110-GP; 97116-GP; 97161-GP; 97165-GO; 97530-GP; 97535-GO; C1713; J0171; J0610; J0690; J1100; J1265; J1650; J1815; J2250; J2370; J2405; J2704; J2930; J3010; J3475; J7613; P9041

== ENCOUNTER → 2017-05-28 | Outpatient (CLI) | payer OTHER | LOC: FIMAGING 10:10 | PROVIDERS: ATTEND Nurse Practitioner | DX: Z98.1 Arthrodesis status (principal); M79.9 Soft tissue disorder, unspecified ==

== ENCOUNTER → 2017-07-13 | Outpatient (CLI) | payer OTHER | LOC: BMCIMAGING 10:06 | PROVIDERS: ATTEND Internal Medicine | DX: Z09 Encounter for follow-up examination after completed treatment for conditions other than malignant neoplasm (principal); Z98.1 Arthrodesis status; N64.59 Other signs and symptoms in breast; Z80.3 Family history of malignant neoplasm of breast ==

== ENCOUNTER → 2017-09-29 | Outpatient (CLI) | payer OTHER | LOC: FIMAGING 08:21 | PROVIDERS: ATTEND Nurse Practitioner | DX: M21.762 Unequal limb length (acquired), left tibia (principal); M19.071 Primary osteoarthritis, right ankle and foot; M76.61 Achilles tendinitis, right leg; Z87.81 Personal history of (healed) traumatic fracture; Z96.642 Presence of left artificial hip joint; Z98.1 Arthrodesis status ==

== ENCOUNTER → 2018-02-16 | Outpatient (CLI) | payer OTHER | LOC: FIMAGING 07:53 | PROVIDERS: ATTEND Nurse Practitioner | DX: Z47.89 Encounter for other orthopedic aftercare (principal); Z98.1 Arthrodesis status ==

== ENCOUNTER 2018-03-03 17:48 | Emergency (ER) | payer OTHER ==
[2018-03-03] MEDS ORDERED: TDAP ADULT 0.5 ML INJ (BOOSTRIX) IM ONE (18:03)
--- NOTE | 2018-03-03 18:04 | EDPHY ---
H & P Stated Complaint: tripped fell bilat knee injury and lac to above left eye no loc Time Seen by Provider: 03/03/18 18:02 HPI/ROS: HPI: This is a 72-year-old male who presents with Chief Complaint: tripped fell bilateral knee injury and lac to above left eye no loc Location: knee, head Quality: Injury Duration: 2 hr prior to arrival Signs and Symptoms: No LOC, + bleeding, no radiation, no numbness, no weakness , no tingling, no incontinence, no decreased range of motion, no swelling, no pain, no fever Timing: Acute Severity: [id number] Context: Patient reports that he was walking out of his driveway this evening when he accidentally tripped over a rock and fell forward. He hit his left side of his forehead and bilateral knees. Denies LOC/neck pain/dizziness/nausea /vomiting/amnesia. Unsure of tetanus status. Was ambulatory at the scene. Patient reports that he sustained a laceration to the left side is forehead that kept bleeding despite direct pressure. He does take a baby aspirin daily and took an aspirin after the accident. He complains of abrasions on both of his knees with pain with flexion and extension. Denies weakness, decreased range of motion. was at the opera and patient sent a selfie of his injuries. Modifying Factors: None Comment: ROS: A comprehensive 10 system review of systems is otherwise negative aside from elements mentioned in the history of present illness. MEDICAL/SURGICAL/SOCIAL HISTORY: Medical/surgical history: ACDF, bilateral hip, cervical fusion Social history: Retired, , nonsmoker. CONSTITUTIONAL: Extremely polite and cooperative, elderly white male who appears younger than stated age, awake and alert, no obvious distress HEENT: Deep 6 cm horizontal laceration with active bleeding and normocephalic, PERRL, EOMI. no globe entrapment, no raccoon eyes. no Kolb signs.Tympanic membranes clear. No tympanic membrane rupture. Nares patent; no septal hematoma. Oropharynx clear, no exudate and moist pink mucosa. No malocclusion. no dental trauma. Airway patent. No lymphadenopathy. NECK: supple, no midline tenderness, flexion 45 degrees, extension 45 degrees, right and left lateral flexion 45 degrees. No meningismus. Cardiovascular: Normal S1/S2, regular rate, regular rhythm, without murmur rub or gallop. PULMONARY/CHEST: Symmetrical and nontender. no crepitus. Clear to auscultation bilaterally. Good air movement. No accessory muscle usage. ABDOMEN: Soft, nondistended, nontender, no ecchymosis, no rebound, no guarding , no peritoneal signs, no masses or organomegaly. No CVAT. PELVIC: no pain with rocking; bilateral hips flexion 125 degrees, extension 30 degrees, with no pain internal rotation and no pain external rotation. BACK: No midline tenderness, no paraspinous spasm, deep tendon reflexes 2/2, no pain with straight leg raise EXTREMITIES: 2/2 pulses, bilateral KNEE: Superficial abrasions noted to both knees; no effusion, no medial and lateral joint line tenderness, full extension to 180, flexion to 120. No pain with varus and valgus exam. No pain with anterior drawer or posterior drawer test. Extensor mechanism intact. no deformities, no clubbing, no cyanosis or edema. NEUROLOGICAL: no focal neuro deficits. GCS 15. SKIN: Warm and dry, no erythema. no rash. Good capillary refill. Source: Patient Exam Limitations: No limitations - Personal History Current Tetanus/Diphtheria Vaccine: Unsure Current Tetanus Diphtheria and Acellular Pertussis (TDAP): Unsure - Medical/Surgical History Hx Asthma: Yes Hx Chronic Respiratory Disease: No Hx Diabetes: No Hx Cardiac Disease: No Hx Renal Disease: No Hx Cirrhosis: No Hx Alcoholism: No Hx HIV/AIDS: No Hx Splenectomy or Spleen Trauma: No Other PMH: ACDF, bilat hips - Social History Smoking Status: Former smoker Constitutional: Initial Vital Signs Temperature (C) 37.2 C 03/03/18 17:50 Heart Rate 96 03/03/18 17:50 Respiratory Rate 16 03/03/18 17:50 Blood Pressure 145/88 H 03/03/18 17:50 O2 Sat (%) 92 03/03/18 17:50 O2 Delivery Mode Room Air Allergies/Adverse Reactions: amoxicillin Allergy (Verified 03/03/18 17:54) "flu like symptoms" Penicillins Allergy (Verified 03/03/18 17:54) "joint swelling" tree nut [Nuts] Allergy (Verified 03/03/18 17:54) Home Medications: Medication Instructions Recorded Allopurinol [Allopurinol 300 MG 300 mg PO DAILY 04/14/17 (RX)] Azelastine HCl 2 mcg NS DAILY PRN 04/14/17 Cholecalciferol Vit D3 [Vitamin D3 4,000 units PO DAILY 04/14/17 2000 units tab (OTC)] Colchicine [Colchicine (*)] 0.6 mg PO DAILY PRN 04/14/17 Medical Decision Making - Diagnostics Imaging Results: Imaging Impressions Cervical Spine CT 03/03/18 18:07 Impression: Status post cervical spine fusion from C4 through C7 without hardware complication. No acute injury identified. Results called to Marla Subramanian PA-C, at the time of the interpretation. Head CT 03/03/18 18:07 Impression: Negative noncontrast CT of the brain. Results called to Marla Subramanian PA-C at the time of the interpretation. Knee X-Ray 03/03/18 18:07 Impression: 1. Degenerative changes left knee, involving both lateral and medial compartments. 2. Mild chondrocalcinosis, right knee. Knee X-Ray 03/03/18 18:07 Impression: 1. Degenerative changes left knee, involving both lateral and medial compartments. 2. Mild chondrocalcinosis, right knee. Procedures: Procedure: Laceration repair. Verbal consent was obtained from the patient. The 6 cm, deep, horizontal, simple laceration on the left side of the 4 was anesthetized in the usual fashion using 6 mL of 1% lidocaine with epinephrine. The wound was irrigated, draped and explored to its base with a gloved finger. There were no deep structures involved. No tendon injury was identified. The wound was repaired with #5, 5-0 Prolene. Good hemostasis was achieved and patient tolerated procedure well. Steri-Strips applied. The procedure was performed by myself. ED Course/Re-evaluation: Vital signs reviewed and stable upon arrival. Tetanus booster given Due to age greater than 65 years, based on nexus protocol, head CT imaging ordered Patient had recent cervical surgery, no midline tenderness but dangerous mechanism, cervical CT imaging ordered Bilateral knee x-rays ordered show degenerative changes; but no acute fracture. Local anesthesia provided; abrasions cleaned with soap and water and bacitracin applied. Fall was mechanical in nature 185: called by radiologist, Dr. Birmingham, who advised that head CT scan shows no acute intracranial process. Cervical CT scan in shows C4-C7 fusion that is stable and no acute fracture. Laceration repaired. Verbal and written wound care instructions provided. Steri-Strips applied. This patient was seen under the supervision of my secondary supervising physician. I evaluated care for this patient independently. Discussed this patient with Dr. Gutierres. Differential Diagnosis: Head injury including but not limited to concussion, skull fracture, intraparenchymal contusion, subarachnoid, subdural and epidural hematoma. - Data Points Medications Given: Discontinued Medications Diphtheria/Tetanus/Acell Pertussis (Boostrix) 0.5 ml IM .ONCE ONE Stop: 03/03/18 18:04 Last Admin: 03/03/18 18:48 Dose: 0.5 ml Departure - Departure Disposition: Home, Routine, Self-Care Clinical Impression: Abrasion of knee, bilateral Laceration of forehead without complication Qualifiers: Encounter type: initial encounter Qualified Code(s): S01.81XA - Laceration without foreign body of other part of head, initial encounter Closed head injury without loss of consciousness Qualifiers: Encounter type: initial encounter Qualified Code(s): S09.90XA - Unspecified injury of head, initial encounter Osteoarthritis of knees, bilateral Qualifiers: Osteoarthritis type: primary Qualified Code(s): M17.0 - Bilateral primary osteoarthritis of knee Condition: Good Instructions: Care For Your Stitches (ED), Laceration (ED), Head Injury (ED), Abrasion (ED), Steristrips (ED) Additional Instructions: Keep the Steri-Strips dry and in place for 48 hours. After 48 hours, you may wash the site daily with mild soap and water; then pat dry. Allow Steri-Strips to fall off on their own in 3-5 days. Clean abrasions daily with mild soap and water and apply topical antibiotic ointment daily until fully healed. Take Tylenol 650 mg every 4 hours and/or Ibuprofen 600 mg every 8 hours with food as needed for pain. Apply ice for 30 minutes at a time; 2-3 times per day for the next 1-2 days. Follow up with Orthopedics in 5-7 days if knee pain persists at which time they will evaluate and recommend with you if conservative management versus further imaging is indicated. The x-rays obtained in the emergency department today demonstrate no evidence of an obvious fracture. Sometimes fractures are not obvious on the initial set of x-rays performed in the ED. For this reason, you should have repeat x-rays performed in 7-10 days if you are having any pain exclude the possibility of an occult fracture. Wound Care Follow-Up: Removal of sutures in [5-7] days. Suture removal is complimentary in uncomplicated cases. Infection or abnormal findings would require reevaluation by the MD. In that case, you may be billed. Return to the ER immediately if you have progressive headaches, neurologic deficits, gait abnormality, visual disturbance, slurred speech, or any other symptom that concerns you. Referrals: Lion Bingham MD [Primary Care Provider] - As per Instructions Klaus Freeman MD [Medical Doctor] - As per Instructions
[2018-03-03 19:21] VITALS: BP 126/93
== END 2018-03-03 19:21 | disposition home or self-care (01) ==
PROC: 0HQ1XZZ Repair Face Skin, External Approach (ICD-10-PCS; principal; 2018-03-03)
DX: S01.81XA Laceration without foreign body of other part of head, initial encounter (principal); M17.0 Bilateral primary osteoarthritis of knee; Z23 Encounter for immunization; Z87.891 Personal history of nicotine dependence; W01.0XXA Fall on same level from slipping, tripping and stumbling without subsequent striking against object, initial encounter; Y92.014 Private driveway to single-family (private) house as the place of occurrence of the external cause; Y93.01 Activity, walking, marching and hiking; Y99.9 Unspecified external cause status

== ENCOUNTER 2018-06-16 07:20 | Day surgery (SDC) | payer OTHER ==
[2018-06-16] MEDS ORDERED: LR 1,000 ML IV ONE (07:54)
--- NOTE | 2018-06-16 08:56 | PDANEPAE ---
ANE History of Present Illness EGD colonoscopy ANE Past Medical History - Cardiovascular History Hx Hypertension: No Hx Arrhythmias: Yes Hx Chest Pain: No Hx Coronary Artery / Peripheral Vascular Disease: No Hx CHF / Valvular Disease: No Hx Palpitations: No Cardiovascular History Comment: CHRONIC A-FIB - Pulmonary History Hx COPD: No Hx Asthma/Reactive Airway Disease: Yes Hx Recent Upper Respiratory Infection: No Hx Oxygen in Use at Home: No Hx Sleep Apnea: Yes Sleep Apnea Screening Result - Last Documented: Positive Pulmonary History Comment: INTERSTITIAL LUNG DX. MONI USES C-PAP INSTRUCTED TO BRING DOS - Neurologic History Hx Cerebrovascular Accident: No Hx Seizures: No Hx Dementia: No - Endocrine History Hx Diabetes: No - Renal History Hx Renal Disorders: No - Liver History Hx Hepatic Disorders: No - Neurological & Psychiatric Hx Hx Neurological and Psychiatric Disorders: No - Cancer History Hx Cancer: Yes Cancer History Comment: SKIN - MOHS - Congenital Disorder History Hx Congenital Disorders: No - GI History Hx Gastrointestinal Disorders: Yes Gastrointestinal History Comment: REMVL COLON POLYPS. PREV ESOPHAGEAL DILATIONS X2. RESIDUAL ISSUES WITH SWALLOWING - Other Health History Other Health History: GILBERTS SYNDROME. GOUT. PERIPHERAL NEUROPATHY VS PARESTHESIA. INTERMITTENT TINNITUS/VERTIGO. ECZEMA. VITAMIN D DEFICIENCY - Chronic Pain History Chronic Pain: No - Surgical History Prior Surgeries: MAY 2017 ACDF CERVICAL. EGD,ESOPHAGEAL DILATION X2 MOST RECENT 2013. LOLITA HIP RESURFACING LAST 2002. BRONCH. REMVL NASAL POLYPS. TONSILLECTOMY. APPY. MOH'S RT JAINISM. RT FIBULA ORIF TIBIA WITH POST HARDWARE REMVL ANE Review of Systems Review of systems is: negative Review of Systems: - Exercise capacity METS (RN): 5 METS ANE Patient History - Allergies Allergies/Adverse Reactions: amoxicillin Allergy (Verified 03/03/18 17:54) "flu like symptoms" Penicillins Allergy (Verified 03/03/18 17:54) "joint swelling" tree nut [Nuts] Allergy (Verified 03/03/18 17:54) - Home Medications Home medications: home medication list seen and reviewed Home Medications: Allopurinol [Allopurinol 300 MG (RX)] 300 mg PO DAILY 04/14/17 [Last Taken 06/15] Azelastine HCl 2 mcg NS DAILY PRN 04/14/17 [Last Taken 4 Months Ago ~02/13/18] Cholecalciferol Vit D3 [Vitamin D3 2000 units tab (OTC)] 4,000 units PO DAILY [Last Taken 06/15/18] Colchicine [Colchicine (*)] 0.6 mg PO DAILY PRN 04/14/17 [Last Taken 4 Months Ago ~02/13/18] Advair 100/50 (*) 06/03/18 [Last Taken 2 Months Ago ~04/15/18] Albuterol 5 mg/ml INH 06/03/18 [Last Taken 06/16/18 06:00] Aspirin 06/03/18 [Last Taken 06/15/18] Clobetasol 0.05% 06/03/18 [Last Taken 06/15/18] - NPO status NPO Since - Liquids (Date): 06/16/18 NPO Since - Liquids (Time): 00:30 NPO Since - Solids (Date): 06/15/18 NPO Since - Solids (Time): 09:30 - Anes Hx Hx Anesthesia Complications (with details): hypotensive episode with code post op - Smoking Hx Smoking Status: Former smoker - Family Anes Hx Family Anes Hx: none Family Hx Anesthesia Complications: NEG ANE Labs/Vital Signs - Vital Signs Vital Signs: reviewed preoperatively; see RN documention for details Blood Pressure: 114/82 Heart Rate: 90 Respiratory Rate: 16 O2 Sat (%): 93 Height: 179.07 cm Weight: 97.522 kg ANE Physical Exam - Airway Neck exam: FROM Mallampati Score: Class 1 Mouth exam: normal dental/mouth exam - Pulmonary Pulmonary: no respiratory distress - Cardiovascular Cardiovascular: regular rate and rhythym - ASA Status ASA Status: III ANE Anesthesia Plan Total IV Anesthesia: Yes
[2018-06-16] MEDS ORDERED: LIDOCAINE 2% 100 MG/5 ML SYR ONE (09:08)
[2018-06-16] MEDS ORDERED: PROPOFOL/EMULSION 500 MG/50 ML BOTTLE IV ONE (09:08)
[2018-06-16] MEDS ORDERED: PHENYLEPHRINE HCL 100 MCG/ML SYR ONE ×2 (09:26→09:50)
[2018-06-16] MEDS ORDERED: HYDROCODONE/APAP 5/325 TAB PO PRN (09:34)
[2018-06-16] MEDS ORDERED: fentaNYL 100 MCG/2 ML INJ IVP PRN (09:34)
[2018-06-16] MEDS ORDERED: ACETAMINOPHEN 500 MG TAB PO PRN (09:34)
[2018-06-16] MEDS ORDERED: oxyCODONE IR 5 MG TAB PO PRN (09:34)
[2018-06-16] MEDS ORDERED: DEXAMETHASONE 4 MG/ML VIAL IVP PRN (09:34)
[2018-06-16] MEDS ORDERED: ALBUTEROL 3 ML DEYVIAL IH PRN (09:34)
[2018-06-16] MEDS ORDERED: PROMETHAZINE HCL 25 MG/ML INJ IVP PRN (09:34)
[2018-06-16] MEDS ORDERED: NALOXONE HCL 0.4 MG/ML INJ IVP PRN (09:34)
[2018-06-16] MEDS ORDERED: ONDANSETRON 4 MG/2 ML VIAL IVP PRN (09:34)
--- NOTE | 2018-06-16 09:35 | GIREPORT ---
Former[facility] Surgical Services - Endoscopy Department Patient Name: Rolf Molina Procedure Date: 06/16/2018 8:17 AM Patient Type: Outpatient Attending MD/ ER Physician: Ion Woodruff MD Procedure: Upper GI endoscopy Indications: Dysphagia Providers: Ion Woodruff MD Medicines: Propofol per Anesthesia Complications: No immediate complications. Description of Procedure: After obtaining informed consent, the endoscope was passed under direct vision. Throughout the procedure, the patient's blood pressure, pulse, and oxygen saturations were monitored continuously. The Endoscope was intro duced through the mouth, and advanced to the second part of duodenum. The [facility] er GI endoscopy was accomplished without difficulty. The patient tolerated th e procedure well. Findings: LA Grade A (one or more mucosal breaks less than 5 mm, not extending be tween tops of 2 mucosal folds) esophagitis with no bleeding was found at the gastroesophageal junction. Biopsies were taken with a cold forceps for histology. One benign-appearing, intrinsic stenosis was found 40 cm from the incis ors. This stenosis was moderately severe and measured 1.1 cm (inner diameter ) x 1 cm (in length). The stenosis was traversed. A TTS dilator was passed th rough the scope. Dilation with a 15-16.5-18 mm balloon dilator was performed to 16.5 mm. Localized mild inflammation characterized by congestion (edema) and berna thema was found in the gastric antrum. Biopsies were taken with a cold forcep s for histology. The examined duodenum was normal. Estimated Blood Loss: Estimated blood loss: none. Post Op Diagnosis: - LA Grade A reflux esophagitis. Biopsied. - Benign-appearing esophageal stenosis. Dilated. - Acute gastritis. Biopsied. - Normal examined duodenum. Recommendation: - Await pathology results. - Use Protonix (pantoprazole) 40 mg PO BID. - Repeat upper endoscopy PRN for retreatment. - Resume previous diet. - Continue present medications. - Patient has a contact number available for emergencies. The signs and symptoms of potential delayed complications were discussed with the pat ient. Return to normal activities tomorrow. Written discharge instructions we re provided to the patient. - Perform a colonoscopy today. - Return to GI office as previously scheduled. - Thank you for allowing me to be involved in the care of your patient. Attending Participation: I personally performed the entire procedure without the assistance of a fellow, resident or surg ical sound assistant. Ion Woodruff MD Ion Woodruff MD 06/16/2018 9:35:44 AM This report has been signed electronicallyDavid MD Kacy Number of Addenda: 0 Note Initiated On: 06/16/2018 8:17 AM [email or web address]
--- NOTE | 2018-06-16 09:36 | POSTANESTH ---
Post Anesthetic Evaluation Cardiovascular Status: Similar to Pre-Op Cond Respiratory Status: Similar to Pre-op Cond. Level of Consciousness/Mental Status: Can Participate in Eval Pain Control: Adequate, Prn Tx Ordered Nausea/Vomiting Control: Adequate, Prn Tx Ordered Complications Possibly Related to Anesthesia: None Noted
[2018-06-16] MEDS ORDERED: PHENYLEPHRINE HCL 100 MCG/ML SYR IVP PRN (10:01)
--- NOTE | 2018-06-16 10:03 | GIREPORT ---
[facility] Surgical Services - Endoscopy Department Patient Name: Rolf Molina Procedure Date: 06/16/2018 8:18 AM Patient Type: Outpatient Attending / ER Physician: Ion Woodruff MD Procedure: Colonoscopy Indications: High risk colon cancer surveillance: Personal history of colonic polyps Providers: Ion Woodruff MD Medicines: Propofol per Anesthesia Complications: No immediate complications. Description of Procedure: After obtaining informed consent, the scope was passed under direct vis ion. Throughout the procedure, the patient's blood pressure, pulse, and oxyg en saturations were monitored continuously. The Colonoscope with irrigatio n channel was introduced through the anus and advanced to the cecum, identified by appendiceal orifice and ileocecal valve. The colonoscopy was performed without difficulty. The patient tolerated the procedure well. The quality of the bowel preparation was excellent. The ileocecal valve, appendiceal orifice, and rectum were photographed. Findings: The perianal and digital rectal examinations were normal. Pertinent negatives include normal sphincter tone, no palpable rectal lesions and normal prostate (size, shape, and consistency). Three sessile polyps were found in the proximal ascending colon. The po lyps were 3 to 5 mm in size. These polyps were removed with a cold biopsy forceps. Resection and retrieval were complete. Ten sessile polyps were found in the proximal transverse colon and mid transverse colon. The polyps were 5 to 6 mm in size. These polyps were removed with a cold biopsy forceps. Resection and retrieval were comple te. A 8 mm polyp was found in the proximal descending colon. The polyp was sessile. The polyp was removed with a cold snare. Resection and retriev al were complete. Multiple small and large-mouthed diverticula were found in the sigmoid colon. Estimated Blood Loss: Estimated blood loss: none. Post Op Diagnosis: - Three 3 to 5 mm polyps in the proximal ascending colon, removed with a cold biopsy forceps. Resected and retrieved. - Ten 5 to 6 mm polyps in the proximal transverse colon and in the mid transverse colon, removed with a cold biopsy forceps. Resected and retr ieved. - One 8 mm polyp in the proximal descending colon, removed with a cold snare. Resected and retrieved. - Diverticulosis in the sigmoid colon. Recommendation: - Await pathology results. - Repeat colonoscopy in 3 years for surveillance. - Resume previous diet. - Continue present medications. - Patient has a contact number available for emergencies. The signs and symptoms of potential delayed complications were discussed with the pat ient. Return to normal activities tomorrow. Written discharge instructions we re provided to the patient. - Thank you for allowing me to be involved in the care of your patient. Attending Participation: I personally performed the entire procedure without the assistance of a fellow, resident or surg ical budget assistant. Ion Woodruff MD Ion Woodruff MD 06/16/2018 10:02:29 AM This report has been signed electronicallyDavid MD Kacy Number of Addenda: 0 Note Initiated On: 06/16/2018 8:18 AM Total Procedure Duration Time 0 hours 21 minutes 49 seconds [email or web address]
--- NOTE | 2018-06-16 10:06 | PDGENHP ---
History & Physical Chief Complaint: Dysphagia. Surveillance colonoscopy History of Present Illness: Dysphagia. Surveillance colonoscopy. Pertinent Past, Social, Family History: PMH: COPD. DJD. PSH: ACDF neck surgery. Hip replacements Relevant Physical Exam: NAD. CTA B/L. RRR without m/r/g. GI soft. Obsese. NABS. NT/ND Cardiorespiratory Assessment: ASA III. EGD with dilation. Colonoscopy. MAC with IV sedation
[2018-06-16 11:40] VITALS: BP 116/78
== END 2018-06-16 11:35 | disposition home or self-care (01) ==
LOC: FSGY 07:20
PROVIDERS: ATTEND Internal Medicine Gastroenterology
PROC: 0DBK8ZX Excision of Ascending Colon, Via Natural or Artificial Opening Endoscopic, Diagnostic (ICD-10-PCS; principal; 2018-06-16 09:00)
PROC: 0DBM8ZX Excision of Descending Colon, Via Natural or Artificial Opening Endoscopic, Diagnostic (ICD-10-PCS; 2018-06-16 09:00)
PROC: 0DBL8ZX Excision of Transverse Colon, Via Natural or Artificial Opening Endoscopic, Diagnostic (ICD-10-PCS; 2018-06-16 09:00)
PROC: 0DB48ZX Excision of Esophagogastric Junction, Via Natural or Artificial Opening Endoscopic, Diagnostic (ICD-10-PCS; 2018-06-16 09:00)
PROC: 0DB68ZX Excision of Stomach, Via Natural or Artificial Opening Endoscopic, Diagnostic (ICD-10-PCS; 2018-06-16 09:00)
DX: K57.30 Diverticulosis of large intestine without perforation or abscess without bleeding (principal); K29.70 Gastritis, unspecified, without bleeding; K20.9 Esophagitis, unspecified; D12.4 Benign neoplasm of descending colon; D12.2 Benign neoplasm of ascending colon; D12.3 Benign neoplasm of transverse colon
CPT/HCPCS: C1726; J2001; J2370; J2704

== ENCOUNTER → 2018-06-21 | Outpatient (CLI) | payer OTHER | LOC: FIMAGING 07:03 | PROVIDERS: ATTEND Nurse Practitioner | DX: Z09 Encounter for follow-up examination after completed treatment for conditions other than malignant neoplasm (principal); Z98.1 Arthrodesis status ==